=== PATIENT | male | born 1995 | race Caucasian/White ===

== ENCOUNTER → 2016-09-03 | Day surgery (SDC) | payer OTHER ==
[2016-09-02 13:24] VITALS: BMI 32.0
[~2016-09-03] VITALS: Ht 172.7 cm; Wt 95.0 kg
[~2016-09-03] MED LIST: ALBUAER2 INH; ALBUT/IPRATROP 3MG/0.5MG NEB 3 ML VIAL INH ONE; CYCL10TA6 PO; FLUO20CA35 PO; IBUP-1428 PO; LIDOCAINE HCL 2% 2 ML VIAL (20MG/ML) ONE; LTHSR/300 PO; MIDAZOLAM HCL 1 MG/ML 2ML VIAL ONE; MOME6000 NAE; OXCA300T PO; PRAZ1CAP10 PO; PROPOFOL IV EMULSION 10 MG/ML 20 ML VIAL IV ONE
[2016-09-03 13:10] VITALS: Ht 172.7 cm; Wt 95.0 kg
[2016-09-03 13:32] VITALS: PULSE 64; O2SAT 98
--- NOTE | 2016-09-03 13:38 | Endo History and Physical ---
History & Physical Date of Service: Sep 03, 2016. Chief Complaint: CHRONIC GERD/VOMITING Referring Physician: DR. BAZZI History of Present Illness For EGD Past Surgical History Hx Cardiac Surgery: No Hx Internal Defibrillator: No Hx Pacemaker: No Hx Abdominal Surgery: No Hx of Implantable Prosthesis: No Hx Post-Op Nausea and Vomiting: No Hx Cancer Surgery: No Hx Thoracic Surgery: No Hx Orthopedic: No Hx Urinary Tract Surgery: No Family History None Social History Smoking Status: Current Every Day Smoker Hx Substance Use: No Hx Alcohol Use: Yes (OCCASIONAL) Allergies Coded Allergies: Cefprozil (Verified Allergy, Unknown, HIVES, 09/03/16) Adhesives (Verified Adverse Reaction, Unknown, RASH WITH EXTENDED USE, 05/10) Current Medications Reported Home Medications Medications Dose Route/Sig Max Daily Dose Days Date Category Mometasone Furoate (Mometasone Furoate (Nasal)) 50 Mcg/Act Spr 2 [place] NATHALIA DAILY PRN 09/02/16 Reported Prazosin (Prazosin HCl) 1 Mg Cap 1 Mg PO HS 09/02/16 Reported Prozac (Fluoxetine HCl) 20 Mg Cap 20 Mg PO QAM 09/02/16 Reported Trileptal (Oxcarbazepine) 300 Mg Tab 300 Mg PO HS 09/02/16 Reported Motrin (Ibuprofen) 800 Mg Tab 800 Mg PO UD PRN 04/07/16 Reported Flexeril (Cyclobenzaprine Hcl) 10 Mg Tab 10 Mg PO DAILY PRN 02/29/16 Reported Ventolin (Albuterol) Inh 2 Puffs INH QID PRN 05/24/15 Reported Vital Signs Weight (Kilograms): 95.00 Height (Feet): 5 Height (Inches): 8 Date Time Temp Pulse Resp B/P Pulse Ox O2 Delivery O2 Flow Rate FiO2 09/03/16 13:32 64 12 98 Room Air 09/03/16 13:20 36.4 60 18 133/70 99 Room Air Physical Exam General Appearance: WD/WN, + pertinent finding (tattoos) Respiratory/Chest: Respiratory effort: no dyspnea Cardiovascular: Heart Auscultation: RRR Abdomen: Inspection & Palpation: soft Assessment and Plan Vomiting for EGD
--- NOTE | 2016-09-03 13:57 | Discharge Instructions ---
Endoscopy Patient Instructions Date / Procedure(s) Performed Sep 03, 2016. EGD Allergy Information Coded Allergies: Cefprozil (Verified Allergy, Unknown, HIVES, 09/03/16) Adhesives (Verified Adverse Reaction, Unknown, RASH WITH EXTENDED USE, 05/10) Discharge Date / Findings Sep 03, 2016. Esophagitis Medication Instructions Stopped Medication(s): PATIENT UNABLE TO REMEMBER IF THEY TOLD IM TO STOP TAKING ANY MEDICATIONS FOR THIS PROCEDURE. Restart Stopped Medication(s): resume meds Reported Home Medications Medications Dose Route/Sig Max Daily Dose Days Date Category Mometasone Furoate (Mometasone Furoate (Nasal)) 50 Mcg/Act Spr 2 [place] NATHALIA DAILY PRN 09/02/16 Reported Prazosin (Prazosin HCl) 1 Mg Cap 1 Mg PO HS 09/02/16 Reported Prozac (Fluoxetine HCl) 20 Mg Cap 20 Mg PO QAM 09/02/16 Reported Trileptal (Oxcarbazepine) 300 Mg Tab 300 Mg PO HS 09/02/16 Reported Motrin (Ibuprofen) 800 Mg Tab 800 Mg PO UD PRN 04/07/16 Reported Flexeril (Cyclobenzaprine Hcl) 10 Mg Tab 10 Mg PO DAILY PRN 02/29/16 Reported Ventolin (Albuterol) Inh 2 Puffs INH QID PRN 05/24/15 Reported Provider Instructions Activity Restrictions - No exercising or heavy lifting for 24 hours. - Do not drink alcohol the day of the procedure. - Do not drive a car or operate machinery until the day after the procedure. - Do not make any important decisions or sign important papers in 24 hours after the procedure. Following Day: - Return to full activity which may include returning to work/school. Diet Start your diet with liquids and light foods (jello, soup, juice, toast). Then eat your usual diet if not nauseated. Treatment For Common After Affects For mild abdominal pain, bloating, or excessive gas: - Rest - Eat lightly - Lie on right side Follow-Up Information Follow-up with DR. BAZZI as scheduled Anesthesia Information What You Should Know You have had a procedure that required some medicine to reduce anxiety and discomfort. This treatment is called moderate sedation. After receiving the treatment, you may be sleepy, but you will be able to breathe on your own. The effects of the treatment may last for several hours. Follow these instructions along with Activity/Diet recommendations noted above: * Do NOT do anything where dizziness or clumsiness would be dangerous. * Rest quietly at home today, then you can be up and about tomorrow. * Have a responsible person stay with you the rest of today. * You may have had an I.V. today. If so, you may take the dressing off later today. Recommendations Call your doctor if: * Trouble breathing * Continuous vomiting for more than 24 hours * Temperature above 101 degrees * Severe abdominal pain or bloating * Pain not relieved by pain medicine ordered * There is increased drainage or redness from any incision * A large amount of rectal bleeding greater than 2-3 tablespoons. (If you had a polyp/s removed or have hemorrhoids, a small amount of blood - from the rectum is to be expected.) * You have any unanswered questions or concerns. IN THE EVENT OF A SERIOUS EMERGENCY, GO TO THE NEAREST EMERGENCY ROOM Your discharge instructions were prepared by provider Ajit Kowalski. Patient Instructions Signature Page Fredrick Hurd Patient (or Guardian) Signature/Date: I have read and understand the instructions given to me by my caregivers. Caregiver/RN/Doctor Signature/Date: The above-named patient and/or guardian has received patient instructions on this date. + Original Patient Signature Page (only) stays with chart. Please make copy for patient.
--- NOTE | 2016-09-03 14:03 | GI REPORT ---
Procedure Date: 09/03/2016 1:35 PM Procedure: Upper GI endoscopy Indications: Nausea with vomiting Medicines: Midazolam 2 mg IV, Propofol total dose 220 mg IV, Lidocaine 40 mg IV Complications: No immediate complications. Estimated Blood Loss: Estimated blood loss: none. Procedure: Pre-Anesthesia Assessment: - Prior to the procedure, a History and Physical was performed, and patient medications, allergies and sensitivities were reviewed. The patient's tolerance of previous anesthesia was reviewed. - The risks and benefits of the procedure and the sedation options and risks were discussed with the patient. All questions were answered and informed consent was obtained. After obtaining informed consent, the endoscope was passed under direct vision. Throughout the procedure, the patient's blood pressure, pulse, and oxygen saturations were monitored continuously. The scope was introduced through the mouth, and advanced to the second part of duodenum. The upper GI endoscopy was accomplished without difficulty. The patient tolerated the procedure well. Findings: LA Grade B (one or more mucosal breaks greater than 5 mm, not extending between the tops of two mucosal folds) esophagitis with no bleeding was found. Localized mildly erythematous mucosa without bleeding was found in the gastric fundus. The examined duodenum was normal. Impression: - LA Grade B reflux esophagitis. - Erythematous mucosa in the gastric fundus. - Normal examined duodenum. - No specimens collected. Recommendation: - Discharge patient to home (ambulatory). - Use Prilosec (omeprazole) 20 mg PO daily indefinitely. - Return to primary care physician PRN. Ajit Kowalski M.D. Ajit Kowalski MD 09/03/2016 2:03:17 PM This report has been signed electronically. Note Initiated On: 09/03/2016 1:35 PM I attest to the content of the Intraoperative Record and orders documented therein, exceptions below
[2016-09-03 14:35] VITALS: BP 123/72; PULSE 57; O2SAT 96
--- NOTE | 2016-09-03 14:47 | Anesthesiology Progress Note ---
Anesthesia Post Op Note Date & Time Sep 03, 2016 at 14:48 Vital Signs Pain Intensity: 0 Vital Signs Past 12 Hours Date Time Temp Pulse Resp B/P Pulse Ox O2 Delivery O2 Flow Rate FiO2 09/03/16 14:35 57 18 123/72 96 Room Air 09/03/16 14:23 66 18 111/66 96 Room Air 09/03/16 14:07 66 12 111/66 97 Room Air 09/03/16 13:56 66 12 102/56 97 Room Air 09/03/16 13:32 64 12 98 Room Air 09/03/16 13:20 36.4 60 18 133/70 99 Room Air Notes Mental Status: alert / awake / arousable, participated in evaluation Pt Amnestic to Procedure: Yes Nausea / Vomiting: adequately controlled Pain: adequately controlled Airway Patency, RR, SpO2: stable & adequate BP & HR: stable & adequate Hydration State: stable & adequate Anesthetic Complications: no major complications apparent
== END | disposition home or self-care (01) ==
LOC: C.GI 12:54
PROVIDERS: ATTEND Internal Medicine Gastroenterology
DX: R11.2 Nausea with vomiting, unspecified (principal); K21.0 Gastro-esophageal reflux disease with esophagitis; K31.89 Other diseases of stomach and duodenum; F17.210 Nicotine dependence, cigarettes, uncomplicated; Z88.1 Allergy status to other antibiotic agents

== ENCOUNTER 2017-04-24 11:21 | Emergency (ER) | payer OTHER ==
[~2017-04-24] VITALS: Ht 175.3 cm; Wt 95.0 kg
[~2017-04-24 11:21] MED LIST changes: -ALBUT/IPRATROP 3MG/0.5MG NEB 3 ML VIAL INH ONE; -LIDOCAINE HCL 2% 2 ML VIAL (20MG/ML) ONE; -LTHSR/300 PO; -MIDAZOLAM HCL 1 MG/ML 2ML VIAL ONE; -PROPOFOL IV EMULSION 10 MG/ML 20 ML VIAL IV ONE
[2017-04-24 11:23] VITALS: BP 130/85; PULSE 60; TEMP 36.7; O2SAT 99; Ht 175.3 cm; Wt 95.0 kg
--- NOTE | 2017-04-24 11:39 | EMERGENCY ROOM VISIT NOTE ---
ED Visit Note First contact with patient: 11:30 CHIEF COMPLAINT: Foreign body in the ear HISTORY OF PRESENT ILLNESS: This 21-year-old male patient presents to the emergency department ambulatory and states they have the cotton part of a Q-tip in his right ear canal. The patient states he was cleaning his ear. He states he was not vigorously cleaning the ear. He states that REVIEW OF SYSTEMS: A 6 system review of systems was completed with positives and pertinent negatives listed in the HPI. ALLERGIES: Adhesives, cefprozil MEDICATIONS: See nursing notes PMH: Mood disorder SOCIAL HISTORY: The patient lives locally PHYSICAL EXAM: Vital Signs: Reviewed Nurse's notes, vital signs stable. GENERAL : This is a 21-year-old male, in no acute distress, non toxic in appearance, well developed, well nourished. SKIN: Normal. MOUTH: The pharynx is normal in appearance and the tonsils are not enlarged. The airway is patent. There are no exudates over the tonsils. EARS: There is a foreign body of cotton at the external auditory canal. This was easily removed with forceps. The left external auditory canal is clear. Both tympanic membranes are pearly rivera without erythema. HEART: Regular rate and rhythm without murmurs gallops or rubs. LUNGS: Clear to auscultation bilaterally without wheezes, rales or rhonchi. No dullness to percussion. No accessory muscle use. No retractions. ED COURSE: I examined the patient. A foreign body of cotton was easily removed with forceps as it was sitting in the external auditory canal and visible without otoscope. The patient tolerated the procedure well. He patient was discharged home in stable condition. Problem List Medical Problems: (1) Asthma Status: Chronic Current/Historical Medications Scheduled Fluoxetine (Prozac), 20 MG PO QAM [place] Carbonate ([place] Carbonate), 300 MG PO HS Oxcarbazepine (Trileptal), 300 MG PO HS Prazosin Hcl (Prazosin), 1 MG PO HS Scheduled PRN Ibuprofen (Motrin), 800 MG PO UD PRN for Pain Allergies Coded Allergies: Cefprozil (Verified Allergy, Unknown, HIVES, 09/03/16) Adhesives (Verified Adverse Reaction, Unknown, RASH WITH EXTENDED USE, 05/10) Vital Signs Date Time Temp Pulse Resp B/P (MAP) Pulse Ox O2 Delivery O2 Flow Rate FiO2 04/24/17 11:23 36.7 60 15 130/85 99 Room Air Departure Information Impression Primary Impression: Foreign body in ear Dispostion Home / Self-Care Condition GOOD Referrals No Doctor, Assigned (PCP) Patient Instructions ED Foreign Body Ear Canal, [facility] Additional Instructions Return with any swelling, pain or drainage from the ear.. Follow-up with the family doctor as needed Problem Qualifiers Primary Impression: Foreign body in ear Encounter type: initial encounter Laterality: right Qualified Codes: T16.1XXA - Foreign body in right ear, initial encounter
[2017-04-24] MEDS ORDERED: LTHSR/300 PO (11:42)
--- NOTE | 2017-04-24 11:44 | EMERGENCY ROOM VISIT NOTE ---
ED Visit Note First contact with patient: 11:30 I have seen and examined this patient with Jana Parker and generally agree with the treatment plan as discussed. Problem List Medical Problems: (1) Asthma Status: Chronic Current/Historical Medications Scheduled Fluoxetine (Prozac), 20 MG PO QAM [place] Carbonate ([place] Carbonate), 300 MG PO HS Oxcarbazepine (Trileptal), 300 MG PO HS Prazosin Hcl (Prazosin), 1 MG PO HS Scheduled PRN Ibuprofen (Motrin), 800 MG PO UD PRN for Pain Allergies Coded Allergies: Cefprozil (Verified Allergy, Unknown, HIVES, 09/03/16) Adhesives (Verified Adverse Reaction, Unknown, RASH WITH EXTENDED USE, 05/10) Vital Signs Date Time Temp Pulse Resp B/P (MAP) Pulse Ox O2 Delivery O2 Flow Rate FiO2 04/24/17 11:23 36.7 60 15 130/85 99 Room Air Departure Information Impression Primary Impression: Foreign body in ear Dispostion Home / Self-Care Condition GOOD Referrals No Doctor, Assigned (PCP) Forms WORK / SCHOOL INSTRUCTIONS, HOME CARE DOCUMENTATION FORM, IMPORTANT VISIT INFORMATION Patient Instructions [facility], ED Foreign Body Ear Canal Additional Instructions Return with any swelling, pain or drainage from the ear.. Follow-up with the family doctor as needed
== END 2017-04-24 11:46 | disposition home or self-care (01) ==
LOC: C.EDB 11:23 → C.EDD 11:46
DX: T16.1XXA Foreign body in right ear, initial encounter (principal); X58.XXXA Exposure to other specified factors, initial encounter; F39 Unspecified mood [affective] disorder; J45.909 Unspecified asthma, uncomplicated

== ENCOUNTER 2017-05-22 12:59 | Emergency (ER) | payer OTHER ==
[~2017-05-22] VITALS: Ht 172.7 cm; Wt 97.0 kg
[~2017-05-22 12:59] MED LIST changes: -ALBUAER2 INH; -CYCL10TA6 PO; +LTHSR/300 PO; -MOME6000 NAE
[2017-05-22 13:13] VITALS: TEMP 36.9; Ht 172.7 cm; Wt 97.0 kg
[2017-05-22] MEDS ORDERED: ALBUT/IPRATROP 3MG/0.5MG NEB 3 ML VIAL INH STA (13:27)
--- NOTE | 2017-05-22 14:01 | DIAGNOSTIC IMAGING REPORT ---
CHEST 2 VIEWS ROUTINE CLINICAL HISTORY: cough, wheeze dyspnea COMPARISON STUDY: 05/14/2016 FINDINGS: The bones soft tissues and hemidiaphragms are normal. The cardiomediastinal silhouette is normal. The lungs are clear. The pulmonary vasculature is normal. IMPRESSION: Negative chest. The above report was generated using voice recognition software. It may contain grammatical, syntax or spelling errors. Electronically signed by: Dayday Martin M.D. 05/22/2017 1:59 PM Dictated Date/Time: 05/22/2017 1:57 PM
[2017-05-22] MEDS ORDERED: PRED20TA PO (14:36)
--- NOTE | 2017-05-22 14:37 | EMERGENCY ROOM VISIT NOTE ---
History First contact with patient: 13:22 Chief Complaint: COUGH Stated Complaint: FLU LIKE SX Nursing Triage Summary: Patient c/o cough x 1 week. Denies fever, n/v/d. History of Present Illness The patient is a 21 year old male who presents to the Emergency Room with complaints of cough 1 week. He also states that he has chest tightness mainly at night. The patient denies any fever, ear pain or sore throat. He does admit to some head congestion. The patient states the cough is not productive. He states he has a history of asthma but he does not have any inhalers at this time. Review of Systems 10 system review was performed and was negative unless stated otherwise history of present illness. Past Medical/Surgical History Medical Problems: (1) Asthma (2) Tobacco Use Disorder Family History FH: cancer FH: diabetes mellitus FH: hypertension FH: kidney disease FH: lung disease Social History Smoking Status: Current Every Day Smoker Alcohol Use: none Drug Use: none Marital Status: single Housing Status: lives with family Occupation Status: disabled Current/Historical Medications No Active Prescriptions or Reported Meds Physical Exam Vital Signs Date Time Temp Pulse Resp B/P (MAP) Pulse Ox O2 Delivery O2 Flow Rate FiO2 05/22/17 13:16 97 Room Air 05/22/17 13:13 36.9 73 18 128/76 99 Room Air Physical Exam PHYSICAL EXAM: Vital Signs were reviewed: Temperature 36.9, blood pressure 128/ 76, pulse rate 73, respirations 18 Reviewed Nurse's notes and agree. Oxygen saturation is 99 % on room air which is normal . GENERAL: 21-year-old male appears in no acute distress. MENTAL STATUS: Alert, oriented, coherent. EARS: Canals clear. TMs good light reflex, no erythema or fluid level noted. NOSE: Nasal mucosa with moderate erythema engorgement. PHARYNX: No erythema, no edema noted. No exudate noted. Airway is adequate. NECK: Supple, non-tender. No lymphadenopathy noted. LUNGS: Good air exchange noted. Patient has expiratory wheezes bilateral lung [place]. No rales or rhonchi noted CARDIAC: Regular rate and rhythm without murmur. SKIN: No rashes noted. Medical Decision & Procedures ER Provider Diagnostic Interpretation: CHEST 2 VIEWS ROUTINE CLINICAL HISTORY: cough, wheeze dyspnea COMPARISON STUDY: 05/14/2016 FINDINGS: The bones soft tissues and hemidiaphragms are normal. The cardiomediastinal silhouette is normal. The lungs are clear. The pulmonary vasculature is normal. IMPRESSION: Negative chest. The above report was generated using voice recognition software. It may contain grammatical, syntax or spelling errors. Electronically signed by: Dayday Martin M.D. 05/22/2017 1:59 PM Medications Administered Medications (Trade) Dose Ordered Sig/Jan Route Start Time Stop Time Status Last Admin Dose Admin Albuterol/ Ipratropium (Duoneb) 3 ml NOW STAT INH 05/22/17 13:27 05/22/17 13:28 DC 05/22/17 13:54 3 ML ED Course The patient was evaluated by myself and independently by Dr. Bello who agree with treatment plan. Chest x-ray was ordered and interpreted as above without any acute findings. The patient was given a DuoNeb. Post-DuoNeb the patient was feeling slightly better. On auscultation the patient's lungs were clear and also rotation without wheezes rales or rhonchi. The patient was given a Ventolin HFA inhaler. The patient was discharged home in stable condition. Medical Decision Differential diagnosis include asthma exacerbation, pneumonia, bronchitis, URI [place] Drug Monitoring Program Search Results: patient reviewed within database Medication Reconcilliation Current Medication List: was personally reviewed by md Blood Pressure Screening Patient's blood pressure: Normal blood pressure Impression Primary Impression: Asthma exacerbation Departure Information Dispostion Home / Self-Care Condition GOOD Prescriptions Prednisone (Prednisone) 20 Mg Tab 0 PO DAILY, #18 TAB 3 DAILY FOR 3 DAYS, THEN 2 DAILY FOR 3 DAYS, THEN 1 DAILY FOR 3 DAYS. Prov: Emely Martin, TREVORC 05/22/17 Referrals No Doctor, Assigned (PCP) Forms HOME CARE DOCUMENTATION FORM, IMPORTANT VISIT INFORMATION [facility] Instructions [facility] AddressReport Additional Instructions Use her Ventolin inhaler 2 puffs every 4 hours as needed for chest tightness or cough. Take prednisolone as prescribed. Follow-up with family doctor in 2 days for recheck. Problem Qualifiers Primary Impression: Asthma exacerbation Asthma severity: mild Asthma persistence: intermittent Qualified Codes: J45.21 - Mild intermittent asthma with (acute) exacerbation
[2017-05-22] MEDS ORDERED: ALBUTEROL HFA 8 GM INHALER INH PRN (14:45)
[2017-05-22 14:46] VITALS: BP 122/61; PULSE 72; O2SAT 96
== END 2017-05-22 14:48 | disposition home or self-care (01) ==
LOC: C.EDD 13:38
DX: J45.21 Mild intermittent asthma with (acute) exacerbation (principal); F17.210 Nicotine dependence, cigarettes, uncomplicated; Z80.9 Family history of malignant neoplasm, unspecified; Z83.3 Family history of diabetes mellitus; Z84.1 Family history of disorders of kidney and ureter; Z83.6 Family history of other diseases of the respiratory system

== ENCOUNTER 2018-03-19 23:13 | Emergency (ER) | payer OTHER ==
[~2018-03-19] VITALS: Ht 172.7 cm; Wt 103.2 kg
[2018-03-19 23:22] VITALS: Ht 172.7 cm; Wt 103.2 kg
[2018-03-19] MEDS ORDERED: SODIUM CHLORIDE 0.9% 1000ML 1,000 ML IV STA (23:49)
[2018-03-19] MEDS ORDERED: ONDANSETRON INJ 2 MG/ML 2 ML VIAL IV STA (23:49)
--- NOTE | 2018-03-19 23:55 | EMERGENCY ROOM VISIT NOTE ---
History Report prepared by Jayashree: Vineet Nixon Under the Supervision of: Dr. Andria Gallo D.O. First contact with patient: 23:28 Chief Complaint: ABDOMINAL PAIN Stated Complaint: HIGH BP, NAUSEA Nursing Triage Summary: abdominal pain, N/V History of Present Illness The patient is a 22 year old male who presents to the Emergency Room with complaints of persistent vomiting that began this evening at 2200, 1.5 hours ago. The patient states that he ate a meatball sub and chocolate chip cookie from [employer] at 200 and began to vomit two hours later. The patient notes that he has a history of gastritis, but meatball subs to not usually interfere with that. He was on Protonix for the gastritis, but now controls his symptoms with Tums. Before the vomiting started today he was feeling "great." The patient denies any fevers or chills, but the patient's significant other at bedside notes that he felt very warm and looked diaphoretic shortly before he vomited this evening. Source of History: patient Onset: 1.5 hours ago Position: abdomen (vomiting) Quality: other (vomiting) Timing: other (persistent) Associated Symptoms: No fevers, No chills Review of Systems See HPI for pertinent positives & negatives. A total of 10 systems reviewed and were otherwise negative. Past Medical & Surgical Medical Problems: (1) Asthma (2) Tobacco Use Disorder Hx of Gastritis. Family History FH: cancer FH: diabetes mellitus FH: hypertension FH: kidney disease FH: lung disease Social History Smoking Status: Current Every Day Smoker Alcohol Use: none Drug Use: none Marital Status: single Housing Status: lives with family Occupation Status: disabled Current/Historical Medications No Active Prescriptions or Reported Meds Allergies Coded Allergies: Cefprozil (Verified Allergy, Unknown, HIVES, 03/19/18) paper tape Adhesives (Verified Adverse Reaction, Unknown, RASH WITH EXTENDED USE, ) Physical Exam Vital Signs Date Time Temp Pulse Resp B/P (MAP) Pulse Ox O2 Delivery O2 Flow Rate FiO2 03/20/18 01:03 36.8 60 16 112/80 98 03/20/18 00:21 58 12 128/75 98 Room Air 03/19/18 23:22 36.8 69 18 139/94 97 Room Air Physical Exam HEENT: Head - normocephalic and atraumatic Pupils are equal, round, and reactive to light. Extraocular eye muscles are intact, and sclera are anicteric. Nose - moist nasal mucosa without discharge. Mouth - moist buccal mucosa. Oropharynx is nonerythematous and there is no tonsillar exudate or edema noted. Neck: Supple; no JVD, nuchal rigidity, cervical lymphadenopathy. Heart: Regular rate and rhythm. There is a normal S1 and S2 with no murmurs, clicks, or gallops appreciated. Lungs: Clear to auscultation bilaterally with no wheezes, rales, or rhonchi. Abdomen: Soft, completely nontender, nondistended, with good bowel sounds. There are no palpable pulsatile masses or hepatosplenomegaly. There is no guarding, rigidity, or rebound noted. Extremities: No evidence of cyanosis, clubbing, or edema. There are easily palpable peripheral pulses. Skin: warm and dry with good turgor and no rashes. Medical Decision & Procedures Laboratory Results 03/19/18 23:56 Red Blood Count 5.01, Mean Corpuscular Volume 88.6, Mean Corpuscular Hemoglobin 30.3, Mean Corpuscular Hemoglobin Concent 34.2, Mean Platelet Volume 10.7, Neutrophils (%) (Auto) 48.6, Lymphocytes (%) (Auto) 34.3, Monocytes (%) (Auto) 10.3, Eosinophils (%) (Auto) 6.3, Basophils (%) (Auto) 0.4, Neutrophils # (Auto ) 4.14, Lymphocytes # (Auto) 2.93, Monocytes # (Auto) 0.88, Eosinophils # (Auto ) 0.54, Basophils # (Auto) 0.03 03/19/18 23:56 Test 03/19/18 23:56 White Blood Count 8.53 K/uL (4.8-10.8) Red Blood Count 5.01 M/uL (4.7-6.1) Hemoglobin 15.2 g/dL (14.0-18.0) Hematocrit 44.4 % (42-52) Mean Corpuscular Volume 88.6 fL (80-100) Mean Corpuscular Hemoglobin 30.3 pg (25-34) Mean Corpuscular Hemoglobin Concent 34.2 g/dl (32-36) Platelet Count 232 K/uL (130-400) Mean Platelet Volume 10.7 fL (7.4-10.4) Neutrophils (%) (Auto) 48.6 % Lymphocytes (%) (Auto) 34.3 % Monocytes (%) (Auto) 10.3 % Eosinophils (%) (Auto) 6.3 % Basophils (%) (Auto) 0.4 % Neutrophils # (Auto) 4.14 K/uL (1.4-6.5) Lymphocytes # (Auto) 2.93 K/uL (1.2-3.4) Monocytes # (Auto) 0.88 K/uL (0.11-0.59) Eosinophils # (Auto) 0.54 K/uL (0-0.5) Basophils # (Auto) 0.03 K/uL (0-0.2) RDW Standard Deviation 40.4 fL (36.4-46.3) RDW Coefficient of Variation 12.7 % (11.5-14.5) Immature Granulocyte % (Auto) 0.1 % Immature Granulocyte # (Auto) 0.01 K/uL (0.00-0.02) Anion Gap 11.0 mmol/L (3-11) Est Creatinine Clear Calc Drug Dose 138.1 ml/min Estimated GFR () 127.7 Estimated GFR (Non- 110.2 BUN/Creatinine Ratio 9.8 (10-20) Calcium Level 8.5 mg/dl (8.5-10.1) Total Bilirubin 0.2 mg/dl (0.2-1) Direct Bilirubin < 0.1 mg/dl (0-0.2) Aspartate Amino Transf (AST/SGOT) 23 U/L (15-37) Alanine Aminotransferase (ALT/SGPT) 43 U/L (12-78) Alkaline Phosphatase 133 U/L (45-117) Total Protein 7.4 gm/dl (6.4-8.2) Albumin 3.9 gm/dl (3.4-5.0) Laboratory results per my review. Medications Administered Medications (Trade) Dose Ordered Sig/Jan Route Start Time Stop Time Status Last Admin Dose Admin Sodium Chloride 1,000 ml @ 999 mls/hr Q1H1M STAT IV 03/19/18 23:49 03/20/18 00:49 DC 03/19/18 23:49 999 MLS/HR Ondansetron HCl (Zofran Inj) 4 mg NOW STAT IV 03/19/18 23:49 03/19/18 23:51 DC 03/19/18 23:49 4 MG Procedure Medications Ordered: Zofran, Sodium Chloride ED Course 2339: Past medical records reviewed. The patient vomited again just prior to my evaluation. The patient was evaluated in room B5. A complete history and physical exam was performed. An IV lock was initiated and labs were drawn as above. 2349: Ordered Zofran 4 mg IV, Sodium Chloride 1000 mL @ 999 mL/hr IV. 0045: I checked on the patient at this time. He was drinking water. 0058: Upon reevaluation, the patient handled water fine. I discussed findings and results with the patient. He verbalized agreement of the treatment plan. The patient was discharged home. Medical Decision The patient is a 22 year old male who presents to the Emergency Department with vomiting and nausea. Differential diagnosis includes; food borne illness, exacerbation of gastritis, viral illness. Laboratory results were reviewed and show; no leukocytosis, stable hemoglobin and hematocrit, normal renal function, normal glucose, normal LFTs, AlkPhos is 133. This is a 22-year-old male patient presents to the emergency department with abrupt onset of nausea and vomiting. He believes that the symptoms may be secondary to a mi pulse of that he had consumed tonight. He had no associated diarrhea. He has no fever or chills. Laboratory studies were unremarkable. The nausea and vomiting has since resolved. He was able to drink clear liquids without difficulty. He was encouraged to take a bland diet over the next couple of days and follow-up with his PCP if the nausea/vomiting persists. If symptoms worsen, he should return to the ER. Medication Reconcilliation Current Medication List: was personally reviewed by me Blood Pressure Screening Patient's blood pressure: Normal blood pressure Impression Primary Impression: Vomiting Scribe Attestation The scribe's documentation has been prepared under my direction and personally reviewed by me in its entirety. I confirm that the note above accurately reflects all work, treatment, procedures, and medical decision making performed by me. Departure Information Dispostion Home / Self-Care Prescriptions No Active Prescriptions or Reported Meds Referrals Kiesha Romero M.D. (PCP) Forms HOME CARE DOCUMENTATION FORM, IMPORTANT VISIT INFORMATION Patient Instructions My [facility] Additional Instructions Rest Take plenty of clear liquids take a bland diet. Follow up with PCP if vomiting persists Problem Qualifiers Primary Impression: Vomiting Vomiting type: unspecified Vomiting Intractability: non-intractable Nausea presence: with nausea Qualified Codes: R11.2 - Nausea with vomiting, unspecified
[2018-03-20 00:08] LABS: BASO % 0.4 %; BASO ABS # 0.03 K/uL (0-0.2); EOS % 6.3 %; EOS ABS # 0.54 K/uL (0-0.5); HEMATOCRIT 44.4 % (42-52); HEMOGLOBIN 15.2 g/dL (14.0-18.0); IG# 0.01 K/uL (0.00-0.02); LYMPH % 34.3 %; LYMPH ABS # 2.93 K/uL (1.2-3.4); MEAN CELL VOLUME 88.6 fL (80-100); MEAN CORPUSCULAR HEMOGLOBIN 30.3 pg (25-34); MEAN CORPUSCULAR HGB CONC 34.2 g/dl (32-36); MEAN PLATELET VOLUME 10.7 fL (7.4-10.4); MONO % 10.3 %; MONO ABS # 0.88 K/uL (0.11-0.59); NEUT % 48.6 %; NEUT ABS # 4.14 K/uL (1.4-6.5); PLATELET COUNT 232 K/uL (130-400); RED CELL DISTRIBUTION WIDTH CV 12.7 % (11.5-14.5); RED CELL DISTRIBUTION WIDTH SD 40.4 fL (36.4-46.3); WHITE BLOOD COUNT 8.53 K/uL (4.8-10.8)
[2018-03-20 00:29] LABS: ALBUMIN 3.9 gm/dl (3.4-5.0); ALKALINE PHOSPHATASE 133 U/L (45-117); ALT/SGPT 43 U/L (12-78); AST/SGOT 23 U/L (15-37); BLOOD UREA NITROGEN 9 mg/dl (7-18); CALCIUM 8.5 mg/dl (8.5-10.1); CARBON DIOXIDE 27 mmol/L (21-32); CREATININE 0.96 mg/dl (0.60-1.40); GLUCOSE 86 mg/dl (70-99); POTASSIUM 3.8 mmol/L (3.5-5.1); SODIUM 142 mmol/L (136-145); TOTAL PROTEIN 7.4 gm/dl (6.4-8.2)
[2018-03-20 01:03] VITALS: BP 112/80; PULSE 60; TEMP 36.8; O2SAT 98
== END 2018-03-20 01:04 | disposition home or self-care (01) ==
LOC: C.EDB 23:15
DX: R11.2 Nausea with vomiting, unspecified (principal); F17.200 Nicotine dependence, unspecified, uncomplicated; Z88.1 Allergy status to other antibiotic agents; Z88.8 Allergy status to other drugs, medicaments and biological substances